=== PATIENT | male | born 1995 | race Two or more races ===

== ENCOUNTER 2017-10-05 10:25 | Emergency (ER) | payer SELFPAY ==
[~2017-10-05] VITALS: Ht 185.4 cm; Wt 79.4 kg
--- NOTE | 2017-10-05 10:53 | NUR ---
1051- Patient ambulated out of our ER with brisk steady gait. MD noe.
--- NOTE | 2017-10-05 10:53 | NUR ---
Patient eloped from facility. ER physician notified.
== END 2017-10-05 11:00 | disposition left against medical advice (07) ==
LOC: ER 10:26
DX: Z04.6 Encounter for general psychiatric examination, requested by authority (principal); Y92.480 Sidewalk as the place of occurrence of the external cause; R46.1 Bizarre personal appearance; Z59.0 Homelessness
CPT/HCPCS: 99283; A4663

== ENCOUNTER 2017-10-05 19:09 | Emergency (ER) | payer MEDICAID ==
[~2017-10-05] VITALS: Ht 185.4 cm; Wt 79.4 kg
--- NOTE | 2017-10-05 19:15 | NUR ---
PT BIB [facility] [place] [facility] DUE TO ALCOHOL INTOXICATION. PT RESPONSIVE TO VERBAL + TACTILE STIMULI. RESPIRATIONS EVEN + UNLABORED.
--- NOTE | 2017-10-05 21:20 | NUR ---
PT RESTING COMFORTABLY IN BED WITH EYES CLOSED. NO ACUTE DISTRESS NOTED. VSS.
--- NOTE | 2017-10-05 23:39 | NUR ---
PT RESTING COMFORTABLY IN BED WITH EYES CLOSED. NO ACUTE DISTRESS NOTED. VSS.
--- NOTE | 2017-10-06 01:44 | NUR ---
PT RESTING COMFORTABLY IN BED WITH EYES CLOSED. NO ACUTE DISTRESS NOTED. VSS.
--- NOTE | 2017-10-06 02:29 | NUR ---
Patient discharged to home in stable conditon. Written and verbal after care instructions given. Patient verbalizes understanding of instructions. Patient left ER in steady gait. AAOX4. VSS. No acute distress noted.
[2017-10-06 02:30] VITALS: BP 124/63
== END 2017-10-06 02:30 | disposition home or self-care (01) ==
LOC: ER 19:10
DX: F10.129 Alcohol abuse with intoxication, unspecified (principal); Z59.0 Homelessness
CPT/HCPCS: 36415; A4663; G0480